=== PATIENT | female | born 1965 | race Caucasian/White ===

== ENCOUNTER 2016-07-07 12:49 | Outpatient (CLI) | payer OTHER | END 2016-07-07 23:00 | LOC: RT SRH 12:49 | DX: J45.909 Unspecified asthma, uncomplicated (principal) ==

== ENCOUNTER 2016-08-04 13:28 | Outpatient (CLI) | payer OTHER ==
--- NOTE | 2016-08-04 15:12 | DIAGNOSTIC IMAGING REPORT ---
PROCEDURE: MG BILATERAL SCREENING W/CAD INDICATION: SCREENING TECHNIQUE: Bilateral CC and MLO digital views. COMPARISON: Compared to 07/30/2015, 07/29/2014, and 07/15/2013. FINDINGS: Computer-aided detection applied. Moderately dense. No change. IMPRESSION: 1. Negative mammogram RESULT CODE: 1- Negative. A. A negative report should not delay biopsy if a dominant or clinically suspicious mass is present. 10-15% of cancers are not identified by x-ray. B. A negative report may reinforce clinical impression. C. Adenosis and dense breasts may obscure an underlying neoplasm. D. False positive reports average 6-10%. E.. A yearly screening mammogram is recommended. A reminder letter will be scheduled.
== END 2016-08-04 23:00 | disposition home or self-care (01) ==
LOC: MAM SRH 13:28
DX: Z12.13 Encounter for screening for malignant neoplasm of small intestine (principal)